=== PATIENT | female | born 2000 | race Caucasian/White ===

== ENCOUNTER 2020-11-13 16:27 | Observation (INO) | payer MEDICAID, SELFPAY ==
[2020-08-15 14:22] VITALS: BMI 27.3
[2020-09-26 11:21] VITALS: BMI 27.3
[2020-11-13] VITALS (14 sets, daily range): BP systolic 96–133; BP diastolic 52–76; PULSE 79–93; RESP 12–16; TEMP 36.2–37.1; O2SAT 97–100; BMI 32.8
--- NOTE | 2020-11-13 | BR_PTH ---
PATIENT: RICK PERLA LOC: MS3 U#:[id number] AGE/SX: 20/F ROOM: [facility] RE11/13/[address]: Dr. Denis Rodriguez MD : 2000 BED: 1 DIS: 11/14/2020 SPEC #: [id number] RECD: 11/13/20 15:35 STATUS: ROBERT OMALLEY #: [id number] JASON: 11/13/20 00:[address]: Denis Rodriguez DEPT: SURGICAL PATHOLOGY RECD BY: Tray Araujo ENTERED: 11/14/20 07:51 SP TYPE: MAMOPLASTY OTHR DR: Dr. Katarzyna Black MD Tissues: B - Right breast, NOS A - Left breast, NOS Procedures: Surgery Specimen Level IV Surgery Specimen Level V HEADER OPERATION: ERAS, left breast reduction mammoplasty and right breast mastectomy PRE-OP DIAGNOSIS: Left breast macromastia TISSUE SUBMITTED: A ? Left breast tissue, B ? Right breast tissue MICROSCOPIC DIAGNOSIS A. Left breast tissue, breast reduction mammoplasty: Fragments of benign breast tissue, no pathologic diagnosis (weighing 609 gm). Skin, no pathologic diagnosis. B. Right breast tissue: Fragments of benign breast tissue, no pathologic diagnosis (weighing 60 gm). Skin, no pathologic diagnosis. JOAN:nicole 11/16/2020 MICROSCOPIC DESCRIPTION Slides are reviewed. GROSS DESCRIPTION A - Received in fixative is one container labeled with the patient's name and designated left breast tissue. The specimen consists of multiple pieces of skin and fibroadipose tissue weighing in aggregate 609 gm and measuring in aggregate 25 x 18 x 6 cm. A few of the pieces also show taylor-brown skin. No skin lesion is identified. Sections of the fibroadipose tissue reveal yellow adipose cut surfaces with scant fibrous area. No mass lesion is identified. [employer] sections are submitted in six cassettes. Cassette 1 contains the skin piece. B - Received in fixative is one container labeled with the patient's name and designated right breast tissue. The specimen consists of three pieces of fibroadipose tissue showing taylor-brown skin measuring in aggregate 11 x 5.5 x 0.8 cm. Also present in the container are three variable sized pieces of yellow fibroadipose tissue measuring in aggregate 9 x 6 x 2.5 cm. No skin lesion is identified. The entire specimen weighs 60 gm. Sections reveal yellow adipose cut surfaces mixed with scant fibrous areas. No mass lesion is identified. [employer]utter sections are submitted in six cassettes. Cassette 1 contains the skin. / JOAN:nicole 11/14/20 TC:5 CPT: 63396 x2
--- NOTE | 2020-11-13 00:33 | HP.PCM_ITS ---
History and Physical Date of Admission: 11/13/20 HISTORY OF PRESENT ILLNESS 20 year old woman presents with complaints of left breast macromastia as well as associated painful symptomatology of neck pain, thoracic back pain, left shoulder pain, left shoulder grooving from the weight of her breast on her bra straps, and inframammary intertrigo for which she uses powders for relief. She denies any trauma to her breasts. Her right breast is much smaller. Denies any nipple discharge. She has had physical therapy for her neck and thoracic back pain without much relief in her painful symptomatology because of the breast asymmetry. Due to the significant size difference of her breasts, she has chronic neck and back pain. She states she had a mammogram a couple of years ago which was normal according to the patient. She doesn't remember where it was done so there is no record to obtain at this time. We have received medical approval from her insurance carrier for the right breast reconstruction. We are waiting on medical approval from her insurance carrier for the left breast reduction mammaplasty. The surgery is tentatively scheduled for November 13, 2020. PAST MEDICAL HISTORY Asthma Back pain Chronic neck pain Chronic thoracic back pain Developmental breast asymmetry External constriction of right breast Intertrigo Left shoulder pain Macromastia Ptosis of both breasts PAST SURGICAL HISTORY None. ALLERGIES amoxicillin [From Augmentin] clavulanic acid [From Augmentin] MEDICATIONS None FAMILY HISTORY Other No pertinent family history SOCIAL HISTORY Smoking Status: Never smoker alcohol intake: never substance use type: does not use REVIEW OF SYSTEMS General - Denies fever, fatigue, and weight loss. Eyes - Denies cataracts and glaucoma. ENT - Denies nasal congestion and sore throat. Endocrine - Denies excessive thirst and urination. Skin - Denies suspicious lesions and skin cancer. Musculoskeletal - Denies joint pain, weakness of muscles and joints, and arthritis. Has joint stiffness and neck pain and back pain. Her neck and back pain involve cervical and thoracic area. Has left shoulder pain from shoulder grooving from the weight of her breasts on her bra straps. Neuro - Denies headaches. Cardiovascular - Denies chest pain, fatigue, and shortness of breath with exertion. Psych - Denies anxiety and depression. Respiratory - Denies chronic cough and shortness of breath. Has asthma. Gastrointestinal - Denies nausea, vomiting, diarrhea, and constipation. Hematologic - Denies abnormal bruising and bleeding. Genitourinary - Denies hematuria and urinary frequency. PHYSICAL EXAMINATION General - Alert and oriented. Her bra size is a D cup on the left and a B cup on the right. HEENT - PERRL. EOMI. Throat is clear. Neck - Supple. No bony tenderness. There is some pericervical soft tissue tenderness mostly on the left side. No cervical adenopathy. Lungs- Clear to auscultation. Heart - Regular rate and rhythm. Breasts - Patient has left sided macromastia. It is noticeably larger than the right breast. No breast masses palpable. No axillary adenopathy noted. Distance from midclavicular line on the left to the nipple is 33 cm and from the nipple to the inframammary fold is 10 cm. Distance from midclavicular line on the right to the nipple is 28 cm and from nipple to the inframammary fold is 8 cm. Nipple areolar complex diameter on left is 11 cm and on the right is 8 cm. Breast width on the left is 14 cm and on the right is 12 cm. No active inframammary intertrigo noted at this time. There is evidence of breast herniation with increased width of the nipple areolar complexes. This is evidence of constriction around the nipple areolar complex. The inframammary fold is slightly higher on the right. There is constriction toward the base of the right breast with narrowing of the base and elevation of the inframammary fold. There is Stage II ptosis bilaterally. These findings are consistent with a tuberous breast deformity on the right. There may be a tuberous component on the left as well but due to the macromastia, it is more of a macromastia issue. Abdomen - Soft and non distended. Extremities - FROM. No axillary adenopathy. Radial pulses are palpable. Back - There is no bony tenderness. There is some perivertebral soft tissue tenderness in the thoracic area mostly on the left side. Neuro - CN II-XII grossly intact. Psych - Normal mood and affect. ASSESSMENT 1. Left breast macromastia. 2. 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 3. Neck pain. 4. Thoracic back pain. 5. Left shoulder pain from shoulder grooving from the weight of the breasts on her bra straps. 6. Inframammary intertrigo left breast. 7. Bilateral breast ptosis. 8. Developmental breast asymmetry. PLAN Patient has painful symptomatology from her left breast macromastia and breast asymmetry. This is due to a developmental tuberous right breast deformity with constriction. She would benefit from a left breast reduction mammaplasty as well as breast reconstruction on the right to help with symmetry which should help with her painful symptomatology. I would remove approximately 450 grams from the left breast. The extent of the scarring was discussed with the patient. She voices understanding and wishes to proceed. The final size of the left breast will range from a high B to a low C cup. This developmental tuberous right breast deformity occurs because of a constriction around the nipple areolar complex with herniation of breast parenchyma and increased width of the nipple areolar complex. There is also a constriction toward the base of the breast with an increase of the inframammary fold and a narrow base with a cylindrical shape of the breast and associated ptosis. Treatment of the tuberous breast deformity involves expanding the breast ci rcumference and lowering the inframammary fold with radial scoring to break the tight crease and to allow redraping of the breast and inframammary fold. Increasing breast volume can be done with an implant or with fat grafting. An principal cloud architect may also be needed if there is severe inferior pole skin deformity. It is also necessary to reduce the areolar size and correct the herniation and correct the nipple location and ptosis with a mastopexy. We have received medical approval from her insurance carrier for the right breast reconstruction. We are waiting on medical approval from her insurance [facility] for the left breast reduction mammaplasty. She had preop questions that were answered personally and to her satisfaction. Her office consents were signed. The surgery is tentatively scheduled for November 13, 2020. Surgery will be done under general anesthesia with a surgical observation overnight stay in the hospital. Drains will be placed for a few days and will be maintained on antibiotics until the drains are removed. Tissue that is removed will be sent to Pathology for analysis to rule out carcinoma. Surgical bra and compression garment will be used postoperatively. She will also be on a lifting restriction as well. Patient was informed of the risks and complications of the procedure including alternatives to surgery. These were discussed with the patient personally. Patient voices understanding and wishes to proceed. Some of the risks and complications were included in a form from the [employer]. Potential risks and complications included but not inclusive of bleeding, infection seroma, hematoma, bruising, swelling, prolonged need for drains, loss of sensation to skin, partial or complete loss of skin flap and/or nipple graft, wound breakdown, need for wound care, poor scarring, poor aesthetic outcome, intra operative cardiac or neurologic events, DVT, PE, and reaction to anesthesia. For symmetry purposes, the plan is to achieve symmetry bilaterally which would be in the B cup range. Patient voices understanding. We discussed increasing breast volume on the right with an implant or an principal cloud architect or with fat grafting. She has decided against these modalities. Therefore for the reduction on the left breast, a little extra breast tissue would be removed to achieve the desired B cup for symmetry. She voices understanding and wishes to proceed. We discussed the current risks associated with COVID-19. While it is understood that there is a community spread of COVID-19, the risk of luan COVID-19 while at [facility] ([facility]) is very low; however, the risk cannot be completely mitigated because of the community spread of the disease. We discussed in detail the risk of exposure to and/or potential harm posed by the COVID-19 virus with having a surgery/procedure at this time versus the risk of delaying the surgery/procedure. It is not possible to know either the risk of delaying the surgery or procedure or chance of getting an infection with perfect accuracy, but a joint decision was made to proceed at this time with the scheduled surgery/procedure as indicated on the consent form. Patient was notifi ed that we will need to comply with any screening or testing [facility] wishes to perform or that surgery may be delayed for any positive results. Discussed with the patient that I was tested for COVID-19 on 11/17/19 which was negative and on 12/01/19 which was negative and on 12/15/19 which was negative and on 12/29/19 which was negative and on 01/12/20 which was negative and on 02/02/20 which was negative and on 02/23/20 which was negative and on 03/29/20 which was negative and on 04/19/20 which was negative and on 05/08/20 which was negative. I received the COVID-19 vaccine (Moderna) on 05/16/20 and the second vaccine dose was received on 06/13/20. When I was hospitalized on 07/16/20 I was tested for COVID-19 which was negative. I was also tested for COVID-19 on 07/31/20 which was negative and on 08/27/20 which was negative. Procedure Criteria Procedure Type: Elective COVID Risk Discussion: The surgeon/proceduralist and patient have discussed in detail the risk of exposure to and/or potential harm posed by the COVID-19 virus with having a surgery/procedure at this time versus the risk of delaying the surgery/procedure. It is not possible to know either the risk of delaying the surgery or procedure or chance of getting an infection with perfect accuracy, but a joint decision was made between the patient and the surgeon/proceduralist to proceed at this time with the scheduled surgery/procedure as indicated on the consent form.
[2020-11-13 07:35] LABS: Internal QC Validated? YES +Cl - CLEAR BKGD
[2020-11-13 07:36] LABS: Pregnancy, Urine Negative Negative
[2020-11-13] MEDS: Gabapentin 600 MG Tablet PO (07:56)
[2020-11-13] MEDS: Lactated Ringers 1,000 ML 40 ML IV ×3 (07:56→13:15)
[2020-11-13] MEDS: Acetaminophen 500 MG Tablet 1000 MG PO ×3 (07:57→23:41)
[2020-11-13] MEDS: Scopolamine 1mg/72hr Patch 1 PATCH TD (07:57)
[2020-11-13 09:31] LABS: Bedside Glucose 96 mg/dL (70-110)
[2020-11-13] MEDS: Lidocaine 1% /Epi 1:100 (20ml) 20 ML Vial (09:52)
--- NOTE | 2020-11-13 13:59 | OP.PCM_ITS ---
Report of Operation Date of Procedure: 11/13/20 Pre-Operative Diagnosis: 1. Left breast macromastia. 2. 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 3. Neck pain. 4. Thoracic back pain. 5. Left shoulder pain from shoulder grooving from the weight of the breasts on her bra straps. 6. Inframammary intertrigo left breast. 7. Bilateral breast ptosis. 8. Developmental breast asymmetry. Post-Operative Diagnosis: Same. Surgery/Procedure Performed:: 1. Left breast reduction mammaplasty. 2. Right breast vertical mastopexy. Description of Surgical Findings:: 20 year old woman presents with complaints of left breast macromastia as well as associated painful symptomatology of neck pain, thoracic back pain, left shoulder pain, left shoulder grooving from the weight of her breast on her bra straps, and inframammary intertrigo for which she uses powders for relief. She denies any trauma to her breasts. Her right breast is much smaller. Denies any nipple discharge. She has had physical therapy for her neck and thoracic back pain without much relief in her painful symptomatology because of the breast asymmetry. Due to the significant size difference of her breasts, she has chronic neck and back pain. She states she had a mammogram a couple of years ago which was normal according to the patient. She doesn't remember where it was done so there is no record to obtain at this time. We have received medical approval from her insurance carrier for the right breast reconstruction with a mastopexy and. for the left breast reduction mammaplasty. Patient was informed of the risks and complications of the procedure including alternatives to surgery. These were discussed with the patient personally. Patient voices understanding and wishes to proceed. Some of the risks and complications were included in a form from the [employer] [place]. Potential risks and complications included but not inclusive of bleeding, infection, seroma, hematoma, bruising, swelling, prolonged need for drains, loss of sensation to skin, partial or complete loss of skin flap and/or nipple, wound breakdown, need for wound care, poor scarring, poor aesthetic outcome, intra operative cardiac or neurologic events, DVT, PE, and reaction to anesthesia. IV Fluids - 2200 ml. Urine Output - 960 ml. Tissue removed from the left breast - 576 grams. Tissue removed from the right breast - 60 grams. I used AmnioFix Placental Connective Tissue Graft, 7 x 6 cm. Catalog Number - [id number]. Lot Number - [id number]. Expiration - July 16, 2025. I used Arsen absorbable hemostat, (I used 4 vials, 2 in each breast). [id number]. Lot Number - [id number]. Expiration - July 15, 2025. Surgeon: Denis Rodriguez management recruiter: Richy Frost Type of Anesthesia: General Specimen's removed: 1. Left breast tissue to Pathology. 2. Right breast tissue to Pathology. Drains: Jayy x2 (one in each breast). Estimated Blood Loss (mL): 150. Fluids Replaced: 3160 ml (IV Fluids 2200 ml, Urine Output 960 ml). Description of Procedure: In the preop area, the patient was placed in the sitting position and preoperative markings were made. The sternum midline was marked down to the umbilicus. The inframammary folds were marked bilaterally, a little higher on the right. The midclavicular line was then marked down to the nipple, then from the nipple to the inframammary fold. The inframammary fold was then superimposed on the midclavicular line and I made a point 1 cm below that to be the new position of the nipple-areolar complex. 7 cm lines were then drawn divergent from that point to encompass the nipple-areolar complex. The distance between the divergent lines was 10 cm. I could not draw divergent lines around the much enlarged nipple areolar complex on the right. So I made circumareolar markings. The patient was then placed in the supine position and taken to the operating room and placed under general anesthesia and her breasts were prepped and draped in usual fashion. Ioban draping was also used. SCDs were placed for DVT prophylaxis. Perioperative antibiotics were given intravenously. A Dawson catheter was also placed. I then halie straight lines down from the lines drawn divergent around the nipple- areolar complex on the left down to the inframammary fold. The width of the pedicle is 9 cm. I then used a 42 mm circular template for a new size of the nipple-areolar complex. The central markings were infiltrated with Xylocaine and epinephrine. I started on the right breast because the final size of the smaller right breast will determine the extent of the reduction on the left breast. Concentric circumareolar incisions were made and the tissue in between was de-epithelialized with a scalpel. Due to the large size of the areola on the right and the degree of breast herniation, extensive mobilization of the breast skin flaps is necessary. The circumareolar incisions will reduce the areolar size and correct the herniation. I dissected the breast skin flaps at the level of Eliu's fascia down to about 1-2 cm from the chest wall. Because of the constriction toward the base of the breast with an increase of the inframammary fold and a narrow base with a cylindrical shape of the breast, I expanded the breast circumference and lowered the inframammary fold with radial scoring to break the tight crease and to allow redraping of the breast and inframammary fold. I placed temporary 3-0 Vicryl sutures to bring the breast skin to the areola to evaluate size and shape of the breast when I compare to the left breast after reduction. I then started on the left breast. The central skin was then deepithelialized. I then mobilized medial and lateral breast flaps at the level of Eliu's fascia down to about 1-2 cm from the chest wall. This was met in the midline of the breast with dissection at the level of Eliu's fascia down to about 1-2 cm from the chest wall. Once the central breast mound pedicle was from the skin envelope, the reduction was then begun. Most of the tissue was removed from the superior aspect of the breast and the lateral aspect of the breast. I then sutured the leading edge of the medial and lateral breast flaps to the midline of the inframammary fold with 2-0 Vicryl suture. The vertical incision was approximated using surgical clips. The excess tissue from the medial and lateral breast flaps were excised and the horizontal incision was approximated using surgical clips. The patient was then placed in a sitting position. Using a vertical limb length of 4.5 cm, I halie the new position of the new nipple- areolar complex on the left breast. They were in good position on the central aspect of the breast mound. Good symmetry was noted between the left breast and the right breast with regard to volume. Good shape and contour and projection was noted and appeared clinically to be a B cup. However there was still slight ptosis on the right. Additional mastopexy with a inferior vertical component would be necessary to improve the ptosis and the nipple position. The patient was then placed back in the supine position and the surgical clips and sutures were removed. The breast wounds were then irrigated with Irrisept 0.05% Chlorhexidine solution which was followed by saline irrigation. Hemostasis was obtained using electrocautery. The tissue removed from the left breast was 576 grams. The tissue removed from the right breast was 60 grams. The tissue that was removed from the breasts was sent to Pathology for analysis to rule out carcinoma. After hemostasis was obtained using electrocautery, I then sprayed Arsen absorbable hemostat into both breast wounds. I used 2 vials for each side. I then placed a size 15 Jayy drain into each breast wound to be brought through the lateral aspect of the horizontal incision on the left and the lateral aspect of the breast on the right. I then closed the left breast wound by first approximating the leading edge of the medial and lateral breast flaps to the midline of the inframammary fold with 2-0 Vicryl suture. At this Tzone area, I placed AmnioFix placental connective tissue graft to help the healing process. The deep dermis and subcutaneous tissue of the vertical incision and the horizontal incisions were approximated using 3-0 Monocryl interrupted sutures. The horizontal incision was then approximated using 4-0 V-Loc unidirectional barbed running subcuticular suture. I also placed a few 4-0 Prolene vertical mattress interrupted sutures at the level of the Tzone. The vertical incision was then closed on the skin with 4-0 Prolene interrupted sutures. With a vertical limb length of 4.5 cm, I halie a circular incision where the nipple-areolar complex would be brought through this keyhole incision. Incisions were made and the nipple areolar complex was brought through the keyhole incision. The nipple-areolar complex was secured to the breast skin using 3-0 Monocryl interrupted sutures for deep dermis and subcutaneous tissue. The skin was approximated using 4-0 Prolene simple interrupted sutures. This was then covered with Histoacryl skin tissue adhesive. I sutured the drains to the skin using 3-0 nylon suture. For the right breast, I made a vertical incision down to the inframammary fold. To determine the amount of tissue to remove, I made a V incision toward the areola. I temporarily closed these markings with 3-0 Vicryl interrupted sutures. The patient was placed back in the sitting position. The ptosis improved and there was better symmetry with regard to the nipple location bilaterally. The patient was placed back in the supine position and the temporary sutures were removed and the vertical markings were incised and de-epithelialized. I closed the vertical incision with 3-0 Monocryl interrupted sutures. This narrowed the circumareolar wound and made closure easier with minimal tension. The circumareolar incision was then closed in a layered fashion with 3-0 Monocryl interrupted sutures for deep dermis and subcutaneous tissue. The skin was approximated with 3-0 Prolene simple interrupted sutures. Histoacryl skin tissue adhesive was then applied to the suture lines bilaterally. At the end of the procedure, the breasts were soft with no evidence of vascular compromise. No evidence of hematomas were noted. The nipples were viable. I then dressed the breasts with a Kerlix gauze and a compression karson wrap. Then patient tolerated the procedure well and will be sent to the recovery room in satisfactory condition. She will be admitted for surgical observation overnight stay. She will go home tomorrow once she is tolerating oral pain medication. I will remove the drains in a few days. She will keep her head elevated during the initial postoperative period. She will be maintained on a lifting restriction and keep her head elevated during the initial postoperative period. Post-discharge, she may get a compression sports bra as well. She will have the Dawson removed in the morning. She will be sent home on antibiotics and pain medicine. Sutures will be removed in 1-2 weeks. Grafts/Implants Used: AmnioFix Placental Connective Tissue Graft, Arsen. Complications None. Admit VTE Documentation VTE Present on Admission: No VTE Mechan Device Prophylaxis: SCD's VTE Pharm Prophylaxis ordered?: Yes Addendum Addendum: Surgery Charges CPT - 12592 ICD-10 - N62, M54.2, M54.6, M25.512, L30.4 74832 S20.141A, N64.89, N64.81, L30.4, M25.512, M54.2, M54.6
[2020-11-13] MEDS: Docusate Sodium 100 MG Capsule PO (18:16)
[2020-11-13] MEDS: Ondansetron ODT 4 MG Tablet PO (18:34)
[2020-11-13] MEDS: Gabapentin 100 MG Capsule 200 MG PO ×2 (20:54→23:42)
[2020-11-13] MEDS: Lactated Ringers 1,000 ML 60 ML IV (20:58)
[2020-11-13] MEDS: Ondansetron 4 MG/2 ML Vial IV (23:41)
[2020-11-14] VITALS: BP 117/43; PULSE 84; RESP 16; TEMP 36.9; O2SAT 100
--- NOTE | 2020-11-14 03:35 | NURSING ---
pt asked rn to take ha out as it is making her uncomfortable. pt aware of dr order but does not want catheter anymore. ha removed. pt went to bathroom and voided.
[2020-11-14] MEDS: Acetaminophen 500 MG Tablet 1000 MG PO (05:36)
[2020-11-14 05:43] VITALS: BP 116/59; PULSE 78; RESP 16; TEMP 37.3; O2SAT 99
[2020-11-14 06:05] LABS: Hematocrit 37.3 % (37-47); Hemoglobin 12.1 g/dL (12.0-15.0); Mean Corp Hgb Conc 32.4 g/dL (32-36); Mean Corpuscular Hgb 27.8 pg (27.0-32.0); Mean Corpuscular Volume 85.6 fL (81-99); Mean Platelet Vol. 9.7 fl (6.2-12.0); Platelet Count 251 K/mm3 (150-450); RBC Distribution Width CV 12.9 % (11.6-14.6); RBC Distribution Width SD 39.8 fl (35.1-43.9); Red Blood Count 4.36 M/mm3 (4.2-5.4); White Blood Count 10.8 K/mm3 (4.4-11.0)
[2020-11-14 06:43] LABS: Anion Gap 2 (5-15); BUN 6 mg/dL (7-18); BUN/Creat Ratio 8.8 RATIO (10-20); Calcium,Total 8.2 mg/dL (8.5-10.1); Chloride 111 mmol/L (98-107); Creatinine, Serum 0.68 mg/dL (0.55-1.02); EST Glomerular Filtration Rate 116 mL/min (>60); Est Glom Filt Rate - Afr Amer 140 mL/min (>60); Estimated Creatinine Clearance 132.02 ml/min; Glucose 86 mg/dL (74-106); Potassium 4.6 mmol/L (3.5-5.1); Sodium Level 134 mmol/L (136-145)
[2020-11-14 07:35] VITALS: O2SAT 97
[2020-11-14 08:09] VITALS: BP 119/65; PULSE 102; RESP 16; TEMP 36.6; O2SAT 97
[2020-11-14] MEDS: oxyCODONE 5 MG Tablet PO ×2 (08:33→11:19)
[2020-11-14] MEDS: Gabapentin 100 MG Capsule 200 MG PO ×2 (08:33→11:18)
--- NOTE | 2020-11-14 09:21 | CASEMGMT ---
Social Work Note SW reviewed POST OP admissions questions. Pt denied HCPOA and LW and denied wanting information/education on documents. Alayna Hwang RESEARCH AND DEVELOPMENT RESEARCHER, SENIOR LANDSCAPE ARCHITECT
[2020-11-14 11:24] VITALS: BP 112/60; PULSE 117; RESP 16; TEMP 36.9; O2SAT 99
--- NOTE | 2020-11-14 12:13 | PCM.PN.SRG ---
Subjective Subjective Postop #1 Patient had episode of nausea yesterday. Better today. Ambulating well. She is tolerating po analgesia. Objective Data Objective Data Vital Signs: Vital Signs Temp Pulse Resp BP Pulse Ox 98.4 F 117 H 16 112/60 99 11/14/20 11:24 11/14/20 11:24 11/14/20 11:24 11/14/20 11:24 11/14/20 11:24 Oxygen Flow Rate (L/min) 6 Oxygen Delivery Method Room Air Weight: 215 lb 9.793 oz Body Mass Index (BMI) 32.8 Intake & Output: Intake and Output for Last 24 Hours 11/12/20 11/13/20 11/14/20 23:59 23:59 23:59 Intake Total 2664.33 / 2664.33 1669 / 1669 Output Total 1612 / 1612 1680 / 1680 Balance 1052.33 / 1052.33 -11 / -11 Drainage 37 ml yesterday, 80 ml today. Lab / Micro Data Attestation: I reviewed the patient's lab results. Result Diagrams: 11/14/20 05:40 11/14/20 05:40 Labs: Laboratory Results - last 24 hr 11/14/20 11/14/20 05:40 05:40 WBC 10.8 RBC 4.36 Hgb 12.1 Hct 37.3 MCV 85.6 MCH 27.8 MCHC 32.4 RDW Std Deviation 39.8 RDW Coeff of Latasha 12.9 Plt Count 251 MPV 9.7 Sodium 134 L Potassium 4.6 Chloride 111 H Carbon Dioxide 21.0 Anion Gap 2 L BUN 6 L Creatinine 0.68 Estim Creat Clear Calc 132.02 Est GFR (MDRD) Af Amer 140 Est GFR (MDRD) Non-Af 116 BUN/Creatinine Ratio 8.8 L Glucose 86 Calcium 8.2 L Prealbumin 15.0 L Physical Exam Narrative PHYSICAL EXAMINATION General - Alert and Oriented. HEENT - PERRL. EOMI. Neck - Supple and nontender. No cervical adenopathy. Breasts - soft and symmetrical. No clinical evidence of hematoma. No vascular compromise noted on the breast skin flaps. Good contour noted. Nipples viable. Abdomen - Soft and nondistended. Neuro - CN II-XII grossly intact. Psych - Normal mood and affect. Assessment & Plan Assessment/Plan (1) Macromastia: (2) External constriction of right breast: (3) Developmental breast asymmetry: (4) Ptosis of both breasts: (5) Chronic neck pain: (6) Chronic thoracic back pain: (7) Left shoulder pain: (8) Intertrigo: PLAN: Breasts are soft and symmetrical. No clinical evidence of hematoma. Nipples are viable. She is tolerating po analgesia. She is ambulating in the hallway. Drainage was 80 ml. Will discharge home with the drains. Will remove in the office in a couple of days. Prealbumin was 15.0. Encourage nutritional supplementation with protein to help the healing process. Discharge home today. Followup office 11/16/20. Keep head elevated. Continue karson wrap compression and lifting restriction. Wrote script for Cleocin until the drains are removed. Wrote script for Percocet for pain (40 tabs). Wrote script for Zofran for nausea (30 tabs).
[2020-11-14] MEDS: 0.9% Saline Lock 10 ML Syringe IV (14:49)
[2020-11-14 15:01] VITALS: BP 116/62; PULSE 103; RESP 16; TEMP 37.2; O2SAT 99
--- NOTE | 2020-11-14 15:24 | PCM.DC ---
Discharge Instructions Diet Discharge Diet: No restrictions and - (encourage nutritional supplementation with protein to help the healing process.) Activity Discharge Activity: May Not Drive and May Not Shower (until the drains are removed.) May shower in (days): 2 (after the drains are removed in the office.) May resume sexual activity in: 10-14 days Weight Bearing Status: Weight bearing as tolerated Lifting Restrictions: 20 lbs. Keep extremity elevated above heart level: - (elevate head.) Additional Activity Instructions:: sleep with an extra pillow. Dressing / Incision Call your doctor if your incision/area has: Continuous Slow Oozing, Sudden Increased Bleeding, Increased Pain/ Swelling, Increased Redness, Foul Smelling Discharge and Swelling at the incision site Call your doctor if you observe: Fever of 101 or Higher, Coldness, Increased Pain, Shortness of breath, Chest pain, Calf discomfort and Uncontrolled pain Suture Line Care: - (dry dressings daily.) Change Dressing in: 1 day (dry dressings daily.) Cleanse incision/area with: - (may get incisions wet in the shower after the drains are removed.) Drain: Suction (sean drains x2 to bulb suction. empty and record output daily.) Additional Dressing/Incision Instructions:: wear compression karson wrap. Follow Up Care Please Follow Up With: Denis Rodriguez MD When: thursday11/16/20 at 1030am. Test Results: Test results from this visit will be discussed in further detail at your follow-up appointment, if applicable. Discharge Plan Admission Admit Date/Time: 11/13/20 16:27 Primary Reason for Your Visit: breast surgery Attending Provider: Denis Rodriguez Primary Care Provider: Katarzyna Black Discharge Orders/Prescriptions Prescriptions: New clindamycin HCl [Cleocin HCl] 300 mg capsule 300 mg PO TID Qty: 12 RF: 0 oxycodone-acetaminophen [Percocet] 5-325 mg tablet 1 tab PO Q4H PRN (Reason: pain (scale score 7-10)) 7 Days Qty: 40 RF: 0 ondansetron 4 mg tablet,disintegrating 4 mg PO Q6H PRN (Reason: nausea and vomiting) Qty: 30 RF: 0 Continued albuterol sulfate 90 mcg/actuation HFA aerosol inhaler 1 - 2 puff INHALATION Q6H PRN PRN (Reason: ASTHMA) RF: 0 Referrals / Follow Up: Katarzyna Black MD [Primary Care Provider] -
--- NOTE | 2020-11-14 15:38 | PCM.DC ---
Discharge Instructions Activity Additional Activity Instructions:: sleep with an extra pillow. Follow Up Care Test Results: Test results from this visit will be discussed in further detail at your follow-up appointment, if applicable. Discharge Plan Admission Admit Date/Time: 11/13/20 16:27 Primary Reason for Your Visit: breast surgery Attending Provider: Denis Rodriguez Primary Care Provider: Katarzyna Black Discharge Orders/Prescriptions Prescriptions: New clindamycin HCl [Cleocin HCl] 300 mg capsule 300 mg PO TID Qty: 12 RF: 0 oxycodone-acetaminophen [Percocet] 5-325 mg tablet 1 tab PO Q4H PRN (Reason: pain (scale score 7-10)) 7 Days Qty: 40 RF: 0 ondansetron 4 mg tablet,disintegrating 4 mg PO Q6H PRN (Reason: nausea and vomiting) Qty: 30 RF: 0 Continued albuterol sulfate 90 mcg/actuation HFA aerosol inhaler 1 - 2 puff INHALATION Q6H PRN PRN (Reason: ASTHMA) RF: 0 Referrals / Follow Up: Katarzyna Black MD [Primary Care Provider] -
--- NOTE | 2020-11-14 16:26 | NURSING ---
educated mother on dressing changed and jonathan care. send dressing change materials home with pt.
== END 2020-11-14 16:33 | disposition home or self-care (01) ==
LOC: SDC 16:50 → MS3 16:50
PROVIDERS: Anesthesiology; Admitting Provider Surgery; PCP Pediatrics; Referring Provider Surgery; Visit Provider Surgery
PROC: 0H0U0ZZ Alteration of Left Breast, Open Approach (ICD-10-PCS; CPT 19318; principal; 2020-11-13 08:45)
DX: N62 Hypertrophy of breast (principal); L30.4 Erythema intertrigo; M54.6 Pain in thoracic spine; M54.2 Cervicalgia; M25.512 Pain in left shoulder; J45.909 Unspecified asthma, uncomplicated; N64.89 Other specified disorders of breast; N64.81 Ptosis of breast
CPT/HCPCS: 19316; 19318; 36415; 80048; 81025; 82962; 83735; 84134; 85027; 88305; 88307; 94762; 96365; 96366; 96375; 99218; 99251; J7120; A4216; G0378; G0379; G0463; J2405; Q9968

== ENCOUNTER → 2020-12-13 15:16 | Outpatient (CLI) | payer MEDICAID, SELFPAY ==
[2020-12-13 09:09] VITALS: BMI 32.8
== END ==
PROVIDERS: PCP Pediatrics; Referring Provider Nurse Practitioner Family; Visit Provider Nurse Practitioner Family
DX: T81.89XA Other complications of procedures, not elsewhere classified, initial encounter (principal); N64.81 Ptosis of breast; N62 Hypertrophy of breast; N64.89 Other specified disorders of breast; S20.1 Other and unspecified superficial injuries of breast; Z98.890 Other specified postprocedural states
CPT/HCPCS: 87070; 87075; 87077; 87186; 87205